=== PATIENT | female | born 1955 | race Caucasian/White ===

== ENCOUNTER → 2017-08-02 | Outpatient (CLI) | payer BC ==
[~2017-08-02] MED LIST: DAILY MULTIPLE1 EACH PO; MELOXICAM15 MG PO; TRAZODONE HCL100 MG PO; VAGIFEM10 MCG VG
== END | disposition home or self-care (01) ==
LOC: CDC 10:01
DX: Z01.810 Encounter for preprocedural cardiovascular examination (principal); I45.10 Unspecified right bundle-branch block
CPT/HCPCS: 93000

== ENCOUNTER 2017-08-08 23:22 | Inpatient (IN) | payer BC ==
[~2017-08-08] VITALS: Ht 157.5 cm; Wt 153.0 kg
[2017-08-09 05:51] VITALS: BP 133/63
[2017-08-09 13:14] VITALS: BP 116/60
[2017-08-09 16:45] VITALS: BP 106/56
[2017-08-09 19:14] VITALS: BP 110/59
[2017-08-09 23:58] VITALS: BP 98/54
[2017-08-10 03:36] VITALS: BP 97/54
[2017-08-10 06:36] LABS: EOSINOPHIL (%) 0.4 % (0-5); HEMATOCRIT 32.9 % (36.0-46.0); IMMATURE GRANULOCYTE (%) 0.4 % (0.0-0.7); INSTRUMENT ABS NEUTROPHIL CT 5.5 K/uL; MCH 30.7 PG (29.0-34.0); MCHC 32.8 G/DL (30.0-36.0); MCV 93.5 FL (83-99); MEAN PLAT.VOLUME 10.4 uM^3 (9.5-12.4); MONOCYTE (%) 8.3 % (3-12); MONOCYTE COUNT 0.7 K/uL (0-0.8); NEUTROPHIL COUNT 5.5 K/uL (1.8-6.4); PLATELET COUNT 157 K/uL (156-360); RBC DIS.WIDTH-CV 13.1 % (11.8-14.6); RBC DIS.WIDTH-SD 44.9 % (39-53); WHITE BLOOD COUNT 8.2 K/uL (4.1-10.2)
[2017-08-10 06:59] LABS: ANION GAP 5 MEQ/L (2-14); CHLORIDE 99 MEQ/L (99-109); GFR ESTIMATE (CALCULATED) > 59 mL/min/; GLUCOSE 98 mg/dL (70-99); SAMPLE HEMOLYSIS CHECK 0; SAMPLE ICTERIC CHECK 0; SAMPLE LIPEMIA CHECK 0; UREA NITROGEN (BUN) 9 mg/dL (9-23)
[2017-08-10 07:01] LABS: SODIUM 133 MEQ/L (136-147)
[2017-08-10 07:08] LABS: RED BLOOD COUNT 3.52 M/uL (3.80-5.20)
[2017-08-10 09:00] VITALS: BP 94/54
[2017-08-10 12:23] VITALS: BP 99/53
[2017-08-10 15:21] VITALS: BP 114/56
[2017-08-10 19:59] VITALS: BP 109/57
[2017-08-11 00:22] VITALS: BP 112/59
[2017-08-11 04:11] VITALS: BP 109/59
[2017-08-11 06:06] LABS: HEMATOCRIT 32.8 % (36.0-46.0); MCH 30.1 PG (29.0-34.0); MCHC 32.6 G/DL (30.0-36.0); MCV 92.4 FL (83-99); PLATELET COUNT 143 K/uL (156-360); RBC DIS.WIDTH-CV 12.9 % (11.8-14.6); RBC DIS.WIDTH-SD 43.9 % (39-53); RED BLOOD COUNT 3.55 M/uL (3.80-5.20); WHITE BLOOD COUNT 7.1 K/uL (4.1-10.2)
[2017-08-11 06:07] LABS: EOSINOPHIL (%) 0.8 % (0-5); EOSINOPHIL COUNT 0.1 K/uL (0-0.3); IMMATURE GRANULOCYTE (%) 0.3 % (0.0-0.7); INSTRUMENT ABS NEUTROPHIL CT 5.2 K/uL; LYMPHOCYTE COUNT 1.4 K/uL (1.0-2.8); MEAN PLAT.VOLUME 10.4 uM^3 (9.5-12.4); MONOCYTE COUNT 0.4 K/uL (0-0.8); NEUTROPHIL (%) 73.2 % (45-76); NEUTROPHIL COUNT 5.2 K/uL (1.8-6.4)
[2017-08-11 06:34] LABS: ANION GAP 5 MEQ/L (2-14); CHLORIDE 103 MEQ/L (99-109); GFR ESTIMATE (CALCULATED) > 59 mL/min/; GLUCOSE 86 mg/dL (70-99); POTASSIUM 4.1 MEQ/L (3.7-5.4); SAMPLE HEMOLYSIS CHECK 0; SAMPLE ICTERIC CHECK 0; SAMPLE LIPEMIA CHECK 0; SODIUM 139 MEQ/L (136-147); UREA NITROGEN (BUN) 6 mg/dL (9-23)
[2017-08-11 07:58] VITALS: BP 106/60
[2017-08-11 16:28] VITALS: BP 127/60
== END 2017-08-11 16:16 | disposition home or self-care (01) | DRG 743 ==
LOC: ENRESERV 23:22 → 2SOUTH 08-09 05:34 → ENRESERV 08-09 12:02 → 2SOUTH 08-09 12:34 → 2EAST 08-09 13:13 → 2SOUTH 08-09 14:41 → 2EAST 08-11 16:16
PROVIDERS: Obstetrics & Gynecology Gynecology
DX: N81.3 Complete uterovaginal prolapse (principal); F51.04 Psychophysiologic insomnia; Z85.828 Personal history of other malignant neoplasm of skin; Z87.891 Personal history of nicotine dependence; Z90.49 Acquired absence of other specified parts of digestive tract; Z80.0 Family history of malignant neoplasm of digestive organs; Z80.1 Family history of malignant neoplasm of trachea, bronchus and lung; Z80.3 Family history of malignant neoplasm of breast; Z80.41 Family history of malignant neoplasm of ovary; Z82.62 Family history of osteoporosis; Z82.49 Family history of ischemic heart disease and other diseases of the circulatory system; Z88.5 Allergy status to narcotic agent
CPT/HCPCS: 80048; 85025; 87086; 88307; C1781; J0690; J1100; J1170; J1650; J1885; J2001; J2405; J2710; J2765; J3010; J3475; J7030; J7120; Q0175